=== PATIENT | female | born 1975 | race Caucasian/White ===

== ENCOUNTER 2017-10-26 13:06 | Emergency (ER) | payer MEDICAID, OTHER ==
[~2017-10-26] VITALS: Ht 175.3 cm; Wt 134.4 kg
[~2017-10-26 13:06] MED LIST: METF500T PO
[2017-10-26 13:18] VITALS: BP 140/86
--- NOTE | 2017-10-26 13:25 | NUR ---
AFTER PROVIDING URINE SAMPLE, PT AMBULATES TO BED 12, REPORT GIVEN TO LALY VASQUEZ
--- NOTE | 2017-10-26 13:30 | NUR ---
41Y/F BIB SELF C/O VAGINAL BLEEDING SINCE MIDNIGHT LAST NIGHT WITH DIZZINESS; USING 1 TAMPONS Q 45 MINS; HAD TUBAL LIGATION LAST SEPTEMBER. SKIN IS PINK/WARM/DRY; AAOX4 WITH EVEN AND STEADY GAIT; PATIENT POSITIONED FOR COMFORT; HOB ELEVATED; BEDRAILS UP X1; BED DOWN. ER MD MADE AWARE OF PT STATUS.
[2017-10-26] MEDS ORDERED: NACL 0.9% 1,000 ML IV ONE (13:35)
[2017-10-26] MEDS ORDERED: KETOROLAC 30 MG/ML VIAL IVP ONE (13:35)
[2017-10-26 13:56] LABS: BASOPHILS % (AUTO) 0.5 % (0.0-2.0); EOSINOPHILS # (AUTO) 0.1 K/uL (0-0.4); EOSINOPHILS % (AUTO) 3.1 % (0.0-4.0); HEMATOCRIT 38.6 % (36-48); HEMOGLOBIN 13.3 g/dL (12.0-16.0); LYMPHOCYTES # (AUTO) 1.8 K/uL (2.5-16.5); LYMPHOCYTES % (AUTO) 42.6 % (20.5-51.1); MEAN CORPUSCULAR HEMOGLOBIN 31 pg (27-31); MEAN CORPUSCULAR HGB CONC 34 g/dL (33-37); MEAN CORPUSCULAR VOLUME 91.1 fL (80-94); MONOCYTES # (AUTO) 0.3 K/uL (0.8-1.0); MONOCYTES % (AUTO) 6.6 % (1.7-9.3); NEUTROPHILS % (AUTO) 47.2 % (42.2-75.2); PLATELET COUNT (AUTO) 249 K/uL (140-450); RED BLOOD CELL COUNT(AUTO) 4.24 MIL/uL (4.20-5.40); RED CELL DISTRIBUTION WIDTH 14.2 % (11.6-13.7); WHITE BLOOD COUNT (AUTO) 4.3 K/uL (4.8-10.8)
[2017-10-26 14:06] LABS: ANION GAP 11.3 (8-16); CARBON DIOXIDE 28.3 mmol/L (21-32); CREATININE 0.7 mg/dL (0.6-1.3); POTASSIUM 3.6 mmol/L (3.5-5.1)
[2017-10-26 14:09] LABS: PROTHROMBIN TIME 10.2 secs (10.8-13.4)
[2017-10-26 14:11] LABS: ALBUMIN 3.8 g/dL (3.4-5.0); TOTAL BILIRUBIN 0.6 mg/dL (0.0-1.0)
[2017-10-26 15:38] VITALS: BP 125/77
== END 2017-10-26 15:38 | disposition home or self-care (01) ==
LOC: MED 13:06
DX: N94.6 Dysmenorrhea, unspecified (principal); I10 Essential (primary) hypertension; E11.9 Type 2 diabetes mellitus without complications; Z79.4 Long term (current) use of insulin
CPT/HCPCS: 36415; 76856; 80053; 81025; 85025; 85610; 85730; 96374; 99285; J1885; J7030; Q0092; 96361